=== PATIENT | male | born 1985 | race Caucasian/White ===

== ENCOUNTER 2023-02-25 08:52 | Emergency (ER) | payer OTHER, SELFPAY ==
[2023-02-25] VITALS (12 sets, daily range): BP systolic 104–186; BP diastolic 64–81; PULSE 86–113; RESP 17–25; TEMP 37.2–38.1; O2SAT 92–97; BMI 34.9
--- NOTE | 2023-02-25 09:12 | DI.RAD.S_ITS ---
PROCEDURE: XR CHEST 1V INDICATIONS: suspected sepsis TECHNIQUE: One view of the chest was acquired. COMPARISON: None. FINDINGS: Surgical changes and devices: None. Lungs and pleura: Lung volumes are low. Minimal patchy left basilar opacities present. No pleural effusion or pneumothorax. Mediastinum: Cardiac silhouette is at the upper limit of normal in size. Bones and chest wall: No suspicious bony lesions. Overlying soft tissues appear unremarkable. IMPRESSION: Low lung volumes with minimal left basilar opacities indeterminate for hypoventilatory atelectasis, aspiration, or pneumonia. Dictated by: Dima Lin M.D. on 02/25/2023 at 9:31 Approved by: Dima Lin M.D. on 02/25/2023 at 9:33
[2023-02-25] MEDS: SODIUM CHLORIDE 0.9% 1,000 ML 1000 ML IV (09:32)
[2023-02-25] MEDS: IBUPROFEN 400 MG TABLET 800 MG PO (09:32)
[2023-02-25 09:35] LABS: Add Manual Diff / Slide Review NO; Basophils Absolute Auto 0 /uL (0-100); Basophils Percent Auto 0.3 % (0-2); Eosinophils Absolute Auto 0 /uL (0-450); Eosinophils Percent Auto 0.4 % (2-4); Hematocrit 38.8 % (41-53); Hemoglobin 13.8 g/dL (13.5-17.5); Lymphocytes Absolute Auto 500 /uL (1100-4500); Lymphocytes Percent Auto 6.9 % (25-40); Mean Corpuscular HGB Conc 35.7 % (30-36); Mean Corpuscular Hemoglobin 31.1 PG (26-34); Mean Corpuscular Volume 87.2 fL (80-100); Monocytes Absolute Auto 600 /uL (0-900); Monocytes Percent Auto 7.6 % (3-14); Neutrophils Absolute Auto 6700 /uL (1500-7000); Neutrophils Percent Auto 84.8 % (50-75); Platelet Count 261 X10^3/uL (150-400); Red Blood Cell Count 4.45 X10^6/uL (4.5-5.9); Red Cell Distribution Width 12.7 % (11.6-14.8); White Blood Cell Count 7.9 X10^3/uL (4.5-11.0)
--- NOTE | 2023-02-25 09:37 | PC.NURSE ---
Patient reports he has has a sinus infection for a week with pain and funky smell in left nostril/face. States yesterday he went out mountain bike riding and it was cold and he began having a cough/shortness of breath afterward. States he has had some asthma induced by exercise in the cold before so he assumed it was that. Does not use an inhaler for this. Also reports some anxiety. He assumed it was a combination of those things but it has not resolved and has gotten worse. Is febrile today with temp of 100.5F in triage. He also reports he has just been feeling unwell today. Reports headache but that that he also has not been taking his migraine medication. He also reports that while he was mountain biking yesterday he hit his head on a branch and today has head and neck pain. No loss of consciousness and is not on blood thinners. No midline c-spine tenderness. States he feels all over body aches which he thought was from the exercise of mountain biking for the first time in a long time. He also reports that since the beginning of the year he has been fatigued and had a 30lb weight gain and has not felt like himself. He reports his father and grandfather had a heart attack at a young age.
[2023-02-25 09:41] LABS: INR 1.2 (0.9-1.3); Prothrombin Time 13.4 SECONDS (10.1-12.7)
--- NOTE | 2023-02-25 09:42 | ED.SOB ---
HPI - SOB/Dyspnea General Chief Complaint: Shortness of Breath/Dyspnea Stated Complaint: cough, sent by [facility] possible heat attack Time Seen by Provider: 02/25/23 08:55 Source: patient Mode of arrival: Ambulatory Limitations: no limitations History of Present Illness HPI Narrative: 37-year-old male nonsmoker presents with his significant other from the walk-in clinic for evaluation of fever, chills, chest pain and shortness of breath. He is had what he describes as a sinus infection for the last week or so and has had some left-sided facial pain. He now states that he is had cough and has a sharp and stabbing chest pain with deep breath. He denies or injury. He denies recent travel, history of blood clot or known cancer Related Data Previous Rx's Medication Instructions Recorded benzonatate 200 mg capsule 200 mg PO BID PRN cough #20 caps 02/25/23 oseltamivir 75 mg capsule (Tamiflu) 75 mg PO BID 5 days #10 caps 02/25/23 Allergies Allergy/AdvReac Type Severity Reaction Status Date / Time No Known Drug Allergies Allergy Verified 02/25/23 09:10 Review of Systems Review of Systems Narrative: GENERAL: See HPI HEENT: Denies sinus pain, ear pain, sore throat, difficulty swallowing, dizziness. RESPIRATORY: See HPI CARDIOVASCULAR: Denies chest pain, palpitations, orthopnea, edema, GASTROINTESTINAL: Denies nausea, vomiting, abdominal pain, diarrhea, constipation, melena. : Denies dysuria, frequency, incontinence, hematuria, urinary retention. MUSCULOSKELETAL: denies weakness, joint pain, or bony pain SKIN: Denies rash, skin lesions, or other NEUROLOGIC: Denies weakness, headache, numbness, change in speech, confusion, seizures, incoordination. PSYCHIATRIC: No concerning psychosocial issues. 12 point review of systems is negative except for those stated above Patient History Social History Smoking Status: Unknown if ever smoked Smoking Status: Unknown if ever smoked alcohol intake frequency: holidays/special occasions only Substance Use Type: does not use Exam Narrative Exam Narrative: GENERAL: [37] year old patient appears stated age. Well-developed patient, in mild distress. Dry hacking cough HEAD: Atraumatic. Normocephalic. EYES: Pupils equal round and reactive. Extraocular motions intact. No scleral icterus. No injection or drainage. ENT: Nose without bleeding, purulent drainage. Throat without erythema, tonsillar hypertrophy or exudate. Airway patent. NECK: Trachea midline. Non tender CARDIOVASCULAR: Tachycardic but regular rhythm without murmurs, gallops, or rubs. RESPIRATORY: Clear to auscultation. Breath sounds equal bilaterally. No wheezes, rales, or rhonchi. GASTROINTESTINAL: Abdomen soft, non-tender, nondistended. EXTREMITIES: No edema or joint tenderness. BACK: Nontender without deformity or crepitance. No flank tenderness. NEURO: AOx3. SKIN: No rash or erythema of visible areas Initial Vital Signs Initial Vital Signs: Vital Signs Temperature 100.5 F H 02/25/23 09:04 Pulse Rate 111 H 02/25/23 09:04 Respiratory Rate 17 02/25/23 09:04 Blood Pressure 138/78 02/25/23 09:04 Pulse Oximetry 96 02/25/23 09:04 Oxygen Delivery Method Room Air 02/25/23 09:04 Course Orders Ordered: Discontinued Medications Acetaminophen (Acetaminophen 325 Mg Tablet) 975 mg PO NOW ONE Stop: 02/25/23 09:14 Last Admin: 02/25/23 10:41 Dose: 975 mg Documented By: CARLA Sodium Chloride (Normal Saline 0.9%) 1,000 mls @ 1,000 mls/hr IV BOLUS ONE Stop: 02/25/23 10:11 Last Infusion: 02/25/23 10:41 Dose: 0 mls/hr Documented By: Admin: 02/25/23 09:32 Dose: 1,000 mls/hr Documented By: CARLA Ibuprofen (Ibuprofen 400 Mg Tablet) 800 mg PO NOW ONE Stop: 02/25/23 09:14 Last Admin: 02/25/23 09:32 Dose: 800 mg Documented By: CARLA Ondansetron HCl (Ondansetron 4 Mg/2 Ml Inj) 4 mg IV NOW PRN PRN Reason: Nausea And Vomiting Vital Signs Vital signs: Vital Signs - 8 hr 02/25/23 09:04 02/25/23 09:32 Temperature 100.5 F H 100.5 F H Pulse Rate 111 H Respiratory Rate 17 Blood Pressure 138/78 Pulse Oximetry 96 Oxygen Delivery Method Room Air MDM - SOB/Dyspnea Lab Data 02/25/23 09:24 02/25/23 09:24 Labs: Lab Results 02/25/23 02/25/23 02/25/23 Range/Units 09:10 09:24 09:24 WBC 7.9 (4.5-11.0) X10^3/uL RBC 4.45 L (4.5-5.9) X10^6/uL Hgb 13.8 (13.5-17.5) g/dL Hct 38.8 L (41-53) % MCV 87.2 (80-100) fL MCH 31.1 (26-34) PG MCHC 35.7 (30-36) % RDW 12.7 (11.6-14.8) % Plt Count 261 (150-400) X10^3/uL Neut % (Auto) 84.8 H (50-75) % Lymph % (Auto) 6.9 L (25-40) % Metcalfe % (Auto) 7.6 (3-14) % Eos % (Auto) 0.4 L (2-4) % Baso % (Auto) 0.3 (0-2) % Neut # (Auto) 6700 (6931-9108) /uL Lymph # (Auto) 500 L (7085-7792) /uL Metcalfe # (Auto) 600 (0-900) /uL Eos # (Auto) 0 (0-450) /uL Baso # (Auto) 0 (0-100) /uL PT 13.4 H (10.1-12.7) SECONDS INR 1.2 (0.9-1.3) APTT 36 (26-36) SECONDS Sodium (137-145) mmol/L Potassium (3.4-5.1) mmol/L Chloride (98-107) mmol/L Carbon Dioxide (22-32) mmol/L BUN (9-20) mg/dL Creatinine (0.66-1.25) mg/dL Estimated GFR (>60) mL/min BUN/Creatinine Ratio (6-22) Glucose (70-100) mg/dL Lactate (0.7-2.1) mmol/L Calcium (8.4-10.2) mg/dL Total Bilirubin (0.2-1.3) mg/dL AST (17-59) IU/L ALT (<50) IU/L Alkaline Phosphatase (38-126) U/L Total Protein (6.3-8.2) g/dL Albumin (3.5-5.0) g/dL Globulin (1.7-4.1) g/dL Albumin/Globulin Ratio (1.0-2.8) Lipase (23-300) U/L Procalcitonin (<0.5) ng/mL Chlamy pneumoniae PCR Not detected (Not Detect) Adenovirus (PCR) Not detected (Not Detect) B. pertussis DNA (PCR) Not detected (Not Detecte) B.parapertussis DNA PCR Not detected (Not Detecte) Coronavirus OC43 (PCR) Not detected (Not Detect) Coronavirus HKU1 (PCR) Not detected (Not Detect) Coronavirus 229E (PCR) Not detected (Not Detect) SARS-CoV-2 (PCR) Not detected (Not Detecte) Coronavirus NL63 (PCR) Not detected (Not Detect) Human Metapneumovir PCR Not detected (Not Detect) Influenza Type A (PCR) Detected H (Not Detect) Influenza Type B (PCR) Not detected (Not Detect) M. pneumoniae (PCR) Not detected (Not Detect) Parainfluenza 1 (PCR) Not detected (Not Detect) Parainfluenza 2 (PCR) Not detected (Not Detect) Parainfluenza 3 (PCR) Not detected (Not Detect) Parainfluenza 4 (PCR) Not detected (Not Detect) RSV (PCR) Not detected (Not Detect) Entero/Rhino (PCR) Not detected (Not Detect) 02/25/23 02/25/23 Range/Units 09:24 09:24 WBC (4.5-11.0) X10^3/uL RBC (4.5-5.9) X10^6/uL Hgb (13.5-17.5) g/dL Hct (41-53) % MCV (80-100) fL MCH (26-34) PG MCHC (30-36) % RDW (11.6-14.8) % Plt Count (150-400) X10^3/uL Neut % (Auto) (50-75) % Lymph % (Auto) (25-40) % Metcalfe % (Auto) (3-14) % Eos % (Auto) (2-4) % Baso % (Auto) (0-2) % Neut # (Auto) (7163-8525) /uL Lymph # (Auto) (2105-0561) /uL Metcalfe # (Auto) (0-900) /uL Eos # (Auto) (0-450) /uL Baso # (Auto) (0-100) /uL PT (10.1-12.7) SECONDS INR (0.9-1.3) APTT (26-36) SECONDS Sodium 135 L (137-145) mmol/L Potassium 4.4 (3.4-5.1) mmol/L Chloride 100 (98-107) mmol/L Carbon Dioxide 26 (22-32) mmol/L BUN 20 (9-20) mg/dL Creatinine 0.95 (0.66-1.25) mg/dL Estimated GFR > 60 (>60) mL/min BUN/Creatinine Ratio 21.1 (6-22) Glucose 100 (70-100) mg/dL Lactate 0.9 (0.7-2.1) mmol/L Calcium 9.1 (8.4-10.2) mg/dL Total Bilirubin 1.1 (0.2-1.3) mg/dL AST 30 (17-59) IU/L ALT 41 (<50) IU/L Alkaline Phosphatase 87 (38-126) U/L Total Protein 8.0 (6.3-8.2) g/dL Albumin 4.5 (3.5-5.0) g/dL Globulin 3.5 (1.7-4.1) g/dL Albumin/Globulin Ratio 1.3 (1.0-2.8) Lipase 83 (23-300) U/L Procalcitonin 0.11 (<0.5) ng/mL Chlamy pneumoniae PCR (Not Detect) Adenovirus (PCR) (Not Detect) B. pertussis DNA (PCR) (Not Detecte) B.parapertussis DNA PCR (Not Detecte) Coronavirus OC43 (PCR) (Not Detect) Coronavirus HKU1 (PCR) (Not Detect) Coronavirus 229E (PCR) (Not Detect) SARS-CoV-2 (PCR) (Not Detecte) Coronavirus NL63 (PCR) (Not Detect) Human Metapneumovir PCR (Not Detect) Influenza Type A (PCR) (Not Detect) Influenza Type B (PCR) (Not Detect) M. pneumoniae (PCR) (Not Detect) Parainfluenza 1 (PCR) (Not Detect) Parainfluenza 2 (PCR) (Not Detect) Parainfluenza 3 (PCR) (Not Detect) Parainfluenza 4 (PCR) (Not Detect) RSV (PCR) (Not Detect) Entero/Rhino (PCR) (Not Detect) MDM Narrative Medical decision making narrative: [37] year old patient presents with dry hacking cough, low-grade fever, chest pain with cough Multiple etiologies for patient's symptoms considered including, but not limited to: [Infectious process versus cardiac ischemia versus pulmonary embolism versus other] Prior Charts reviewed in our EMR Primary Historian: patient Labs reviewed and interpreted by myself: No significant leukocytosis or left shift, lymphocytosis, no signs of anemia, electrolytes including procalcitonin within normal, viral panel positive for influenza A Imaging reviewed: Low lung volumes with minimal left basilar opacities, hypoventilation, atelectasis, aspiration, pneumonia Patient's symptoms improved over duration of stay with above-stated therapies. Findings and discharge diagnosis discussed with patient/family followed by verbalization of understanding Return precautions discussed with patient/family whom verbalize understanding of diagnosis and plan Discharge Plan Departure Patient Disposition: Home Clinical Impression: Flu Instructions: DI for Influenza -- Adult Activity Restrictions/Additional Instructions: *You have been diagnosed with [ flu] *What to do: *Please continue to take your regular medications as directed. [x ] New medication prescriptions sent to your pharmacy: [ [facility]] [ ] New medication written as a paper prescription [ ] No new medications given *Please follow up with your primary care provider in 2-3 days, call for an appointment. Let them know you were seen in the Emergency Department and that we ask that you be seen in follow up. We will electronically transmit a record of today's note if your PCP is in our system *If you do not have a primary care provider please contact the [facility] Resource line at [phone]. They will ask some questions about your medical history and help get you set up with a doctor in the community. *Return to Emergency Department if you should have any new, worsening or concerning symptoms, such as [fever greater than 101 F, shaking chills, worsening pain, persistent vomiting or other bothersome symptoms] Prescriptions: New oseltamivir [Tamiflu] 75 mg capsule 75 mg PO BID 5 Days Qty: 10 0RF benzonatate 200 mg capsule 200 mg PO BID PRN (Reason: cough) Qty: 20 0RF Referrals: Provider,Jeffrey SOLANO [Primary Care Provider] - Stand Alone Forms: Patient Portal/API, Work Release Note
[2023-02-25 09:44] LABS: Lactate (Lactic Acid) 0.9 mmol/L (0.7-2.1); PTT Partial Thromboplastin Tim 36 SECONDS (26-36)
[2023-02-25 09:46] LABS: Alanine Aminotransferase 41 IU/L (<50); Albumin 4.5 g/dL (3.5-5.0); Albumin Globulin Ratio 1.3 (1.0-2.8); Alkaline Phosphatase 87 U/L (38-126); Aspartate Aminotransferase 30 IU/L (17-59); BUN Creatinine Ratio 21.1 (6-22); Bilirubin Total 1.1 mg/dL (0.2-1.3); Blood Urea Nitrogen 20 mg/dL (9-20); Calcium 9.1 mg/dL (8.4-10.2); Carbon Dioxide 26 mmol/L (22-32); Chloride 100 mmol/L (98-107); Estimated Glomerular Filt Rate > 60 mL/min (>60); Globulin 3.5 g/dL (1.7-4.1); Glucose 100 mg/dL (70-100); HEMOLYSIS < 15 (0-50); Lipase 83 U/L (23-300); Potassium 4.4 mmol/L (3.4-5.1); Sodium 135 mmol/L (137-145)
[2023-02-25 10:02] LABS: Procalcitonin 0.11 ng/mL (<0.5)
[2023-02-25 10:28] LABS: Adenovirus Not Detected (Not Detect); B. parapertussis Not Detected (Not Detecte); Bordetella pertussis Not Detected (Not Detecte); Chlamydophila pneumoniae Not Detected (Not Detect); Coronavirus 229E Not Detected (Not Detect); Coronavirus HKU1 Not Detected (Not Detect); Coronavirus NL 63 Not Detected (Not Detect); Coronavirus OC43 Not Detected (Not Detect); Human Metapneumovirus Not Detected (Not Detect); Human Rhinovirus/Enterovirus Not Detected (Not Detect); Influenza A Detected (Not Detect); Influenza B Not Detected (Not Detect); Mycoplasma pneumoniae Not Detected (Not Detect); Parainfluenza Virus 1 Not Detected (Not Detect); Parainfluenza Virus 2 Not Detected (Not Detect); Parainfluenza Virus 3 Not Detected (Not Detect); Parainfluenza Virus 4 Not Detected (Not Detect); Respiratory Syncytial Virus Not Detected (Not Detect); SARS- CoV-2 Not Detected (Not Detecte)
[2023-02-25] MEDS: ACETAMINOPHEN 325 MG TABLET 975 MG PO (10:41)
== END 2023-02-25 12:02 | disposition home or self-care (01) ==
PROVIDERS: Emergency Provider Emergency Medicine
DX: J10.1 Influenza due to other identified influenza virus with other respiratory manifestations (principal); R06.02 Shortness of breath; Z20.822 Contact with and (suspected) exposure to COVID-19
CPT/HCPCS: 36415; 71045; 80053; 83605; 83690; 84145; 85025; 85610; 85730; 87040; 87633; 93005; 93010; 96360; 99284

== ENCOUNTER 2023-11-01 16:54 | Emergency (ER) | payer OTHER, SELFPAY ==
[2023-11-01 17:00] VITALS: BP 119/73; PULSE 75; RESP 20; TEMP 36.7; O2SAT 98; BMI 36.2
--- NOTE | 2023-11-01 17:08 | DI.RAD.S_ITS ---
PROCEDURE: XR KNEE LT 3V INDICATIONS: pain, felt pop TECHNIQUE: 3 views of the knee were acquired. COMPARISON: None. FINDINGS: Bones: No fractures or dislocations. No suspicious bony lesions. Soft tissues: No joint effusion. No suspicious soft tissue calcifications. IMPRESSION: No acute bony abnormality or significant effusion. If there are persistent symptoms or clinical suspicion for pathology, then repeat radiographs or advanced imaging (CT or MRI) may be considered for further evaluation. Dictated by: Aravind Jaramillo M.D. on 11/01/2023 at 18:07 Approved by: Aravind Jaramillo M.D. on 11/01/2023 at 18:07
--- NOTE | 2023-11-01 17:56 | ED_ITS ---
HPI - Extremity Injury (Lower) <Ameya Andino PA-C - Last Filed: 11/01/23 18:16> General Chief Complaint: Extremity Injury, Lower Stated Complaint: lt knee pain, unable to bend it,non weight bearing Time Seen by Provider: 11/01/23 17:29 Source: patient Mode of arrival: Ambulatory History of Present Illness HPI Narrative: 38-year-old male presents to the ED with 3 weeks of left-sided knee pain. Patient states that he has been working on the jose ale[employer] at home which is caused his left knee to hurt. Today, as patient coming down some stairs he felt pop, felt his knee collapse and it has been difficult to flex it since then. Patient states that he was able to eventually flexes it for the x-ray, and it has been feeling somewhat better since then. Patient denies numbness, tingling, weakness. Related Data Previous Rx's Medication Instructions Recorded benzonatate 200 mg capsule 200 mg PO BID PRN cough #20 caps 02/25/23 Allergies Allergy/AdvReac Type Severity Reaction Status Date / Time No Known Drug Allergies Allergy Verified 02/25/23 09:10 Review of Systems <Ameya Andino PA-C - Last Filed: 11/01/23 18:16> Constitutional Constitutional: Denies chills, Denies fatigue, Denies fever(s), Denies frequent falls, Denies lethargy and Denies weakness Eyes Eyes: Denies change in vision, Denies eye discharge, Denies irritation and Denies loss of vision ENT Ears, Nose, Mouth, and Throat: Denies change in voice, Denies dizziness, Denies neck pain, Denies sore throat and Denies throat swelling Cardiovascular Cardiovascular: Denies chest pain, Denies irregular heart rhythm, Denies lightheadedness, Denies palpitations, Denies dyspnea, Denies dyspnea on exertion and Denies orthopnea Respiratory Respiratory: Denies cough, Denies dyspnea, Denies dyspnea on exertion and Denies wheezing Gastrointestinal Gastrointestinal: Denies abdominal pain, Denies change in bowel habits, Denies diarrhea, Denies nausea and Denies vomiting Musculoskeletal Musculoskeletal: Denies neck pain and Denies numbness Comments: Left-sided knee pain Integumentary/Breasts Skin/Breast: Denies pruritus, Denies erythema, Denies rash and Denies wounds Neurologic Neurologic: Denies behavioral changes, Denies confusion, Denies dizziness, Denies frequent falls, Denies loss of vision, Denies numbness and Denies weakness Psychiatric Psychiatric: Denies anxiety, Denies behavioral changes, Denies confusion, Denies depression, Denies homicidal ideation and Denies suicidal ideation Endocrine Endocrine: Denies fatigue, Denies flushing and Denies palpitations Hematologic/Lymphatic Hematologic/Lymphatic: Denies easy bruising Allergic/Immunologic Allergic/Immunologic: Denies urticaria, Denies throat swelling and Denies wheezing Patient History <Ameya Andino PA-C - Last Filed: 11/01/23 18:16> Social History Smoking Status: Unknown if ever smoked Smoking Status: Unknown if ever smoked alcohol intake frequency: holidays/special occasions only Substance Use Type: does not use Exam <Ameya Andino PA-C - Last Filed: 11/01/23 18:16> Narrative Exam Narrative: Const General:?cooperative, healthy appearing and comfortable [facility] Head:?normal to inspection Ears:?hearing grossly normal bilaterally Nose:?external nose normal Face and sinus:?normal facial exam and sinuses nontender Mouth:?oral mucosae normal Throat:?posterior oropharynx normal Eyes General:?appearance normal, both eyes and all related structures Neck Neck:?normal visual inspection and no lymphadenopathy noted Resp Effort & Inspection:?normal respiratory effort Auscultation:?clear to auscultation bilaterally Cardio Rate:?regular rate Rhythm:?regular rhythm Musculoskeletal There is some tenderness to palpation of the lateral and suprapatellar aspect of the knee. No bruising, deformities. There is full range of motion. Strength and sensation is intact. Patient is neurovascularly intact. Patient is able to walk but limping. Neuro General:?patient alert, patient awake and patient oriented x3 Initial Vital Signs Initial Vital Signs: Vital Signs Temperature 98.1 F 11/01/23 17:00 Pulse Rate 75 11/01/23 17:00 Respiratory Rate 20 11/01/23 17:00 Blood Pressure 119/73 11/01/23 17:00 Pulse Oximetry 98 11/01/23 17:00 Oxygen Delivery Method Room Air 11/01/23 17:00 <Ladonna Montenegro DO - Last Filed: 11/08/23 03:20> Initial Vital Signs Initial Vital Signs: Vital Signs Temperature 98.1 F 11/01/23 17:00 Pulse Rate 75 11/01/23 17:00 Respiratory Rate 20 11/01/23 17:00 Blood Pressure 119/73 11/01/23 17:00 Pulse Oximetry 98 11/01/23 17:00 Oxygen Delivery Method Room Air 11/01/23 17:00 Course <Ameya Andino PA-C - Last Filed: 11/01/23 18:16> Orders Ordered: ED Orders 11/01/23 17:08 XR knee LT 3V Stat Vital Signs Vital signs: Vital Signs - 8 hr 11/01/23 17:00 Temperature 98.1 F Pulse Rate 75 Respiratory Rate 20 Blood Pressure 119/73 Pulse Oximetry 98 Oxygen Delivery Method Room Air <Ladonna Montenegro DO - Last Filed: 11/08/23 03:20> Orders Ordered: ED Orders 11/01/23 17:08 XR knee LT 3V Stat Vital Signs Vital signs: Vital Signs - 8 hr 11/01/23 17:00 Temperature 98.1 F Pulse Rate 75 Respiratory Rate 20 Blood Pressure 119/73 Pulse Oximetry 98 Oxygen Delivery Method Room Air MDM - Extremity Injury (Lower) <Ameya Andino PA-C - Last Filed: 11/01/23 18:16> MDM Narrative Medical decision making narrative: 38-year-old male presents to the ED with 3 weeks of left-sided knee pain. Concern for fracture/dislocation versus musculoskeletal sprain/strain versus other. Will obtain x-ray. Will reassess. X-ray without acute findings. Patient's symptoms are likely due to a musculoskeletal sprain/strain. Recommend Jose wrap, ibuprofen, rest. Recommend follow-up with PCP for further evaluation. ED return precautions discussed with patient. Patient verbalized understanding. Medical records reviewed: Yes Discharge Plan Departure Patient Disposition: Home Clinical Impression: Acute knee pain Qualifiers: Laterality: left Qualified Code(s): M25.562 - Pain in left knee Instructions: DI for Knee Pain Activity Restrictions/Additional Instructions: You were evaluated in the ED today for left-sided knee pain. Your x-ray did not show any fractures or dislocations. Your symptoms are likely due to a musculoskeletal sprain/strain caused by overuse. You may keep your knee wrapped with Jose wrap, take 800 mg of ibuprofen every 8 hours with food for pain and inflammation. Please follow-up with your PCP as soon as possible for further evaluation. Return to the ED if you have worsening symptoms, numbness, tingling, weakness. Prescriptions: No Action benzonatate 200 mg capsule 200 mg PO BID PRN (Reason: cough) Qty: 20 0RF Referrals: Provider,Jeffrey SOLANO [Primary Care Provider] - Stand Alone Forms: Patient Portal/API ED Sign-out <Ladonna Montenegro DO - Last Filed: 11/08/23 03:20> Cosign ED Attending Jose Luisature Attestation: I was available for consultation.
[2023-11-01 18:22] VITALS: BP 121/81; PULSE 77; RESP 20; O2SAT 96
== END 2023-11-01 18:22 | disposition home or self-care (01) ==
PROVIDERS: Emergency Provider Student in an Organized Health Care Education/Training Program
DX: M25.562 Pain in left knee (principal)
CPT/HCPCS: 73562; 99282; 99283